=== PATIENT | female | born 1990 | race Caucasian/White ===

== ENCOUNTER 2021-11-19 09:51 | Emergency (ER) | payer BC ==
[~2021-11-19] VITALS: Ht 149.9 cm; Wt 52.3 kg
[2021-11-19 10:01] VITALS: BP 127/89; PULSE 75; TEMP 98.2
[2021-11-19] MEDS ORDERED: BIRTH CONTROL (10:04)
[2021-11-19] MEDS ORDERED: YAZ 28 3 MG-0.01 TAB PO (10:04)
[2021-11-19 10:42] LABS: ARTERIAL BLD GAS O2 SATURATION 97.4 % (92-100); ARTERIAL BLD GAS TCO2 CT 22.3; ARTERIAL BLOOD GAS HCO3 21.3 meq/L (22-26); ARTERIAL BLOOD GAS PCO2 32.5 mmHg (35-45); ARTERIAL BLOOD GAS PO2 88.7 mmHg (80-100); ARTERIAL BLOOD GAS pH 7.44 (7.35-7.45)
[2021-11-19 10:48] LABS: HEMATOCRIT 39.3 % (37.0-47.0); HEMOGLOBIN 13.1 g/dl (12.5-16.0); MEAN CELL VOLUME 94 fl (80.0-100.0); MEAN CORPUSCULAR HEMOGLOBIN 31 pg (27-31); MEAN CORPUSCULAR HGB CONC 33 g/dl (33.0-37.0); MEAN PLATELET VOLUME 9.8 fl (7.4-10.4); PLATELET COUNT 276 K/mm3 (130-400); RED BLOOD COUNT 4.17 M/mm3 (4.10-5.30); REDCELL DISTRIBUTION WIDTH-CV 12.3 % (11.5-14.5)
[2021-11-19 11:22] LABS: EOSINOPHIL 3 % (0-4); LYMPHOCYTE 52 % (20.0-51.0); NEUTROPHILS 23 % (42.0-75.2)
[2021-11-19 11:23] LABS: PLATELET ESTIMATE NORMAL (NORMAL)
== END 2021-11-19 11:20 | disposition home or self-care (01) ==
LOC: COL.ER 09:51
PROVIDERS: Nurse Practitioner
DX: U07.1 COVID-19 (principal)